=== PATIENT | female | born 1980 | race Caucasian/White ===

== ENCOUNTER → 2021-06-18 | Outpatient (CLI) | payer BC ==
[2021-06-18 16:06] VITALS: BP 152/88; PULSE 84; RESP 18; TEMP 98.5
--- NOTE | 2021-06-18 16:21 | P.GSHP ---
History of Present Illness H&P Date: 06/18/21 Bernice is a 41 year old white female seen in consultation for Dr. Salgado regarding a tripple - right breast invasive ductal cancer. The patient felt a lump in her right breast near the beginning of April the lesion did not go away but it was not painful. She reported this her primary care doctor in the ultrasound was performed on which revealed an 18 mm irregular horizontal vascular lesion in the right breast at the 9 o'clock position. She subsequently had a bilateral mammogram performed and which again confirmed the lesion in the right breast no lesions of concern were identified in the left breast. 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 The patient states it has possible gotten a little larger in size. Does not feel any other lumps masses or nodules in either breast. She does not feel any enlarged lymph nodes under either arm. She has never had any surgery on her breasts before. She has not had any recent trauma or infection in the breast. Caffeine: 1 can/day nicotine: none chocolate:occasional Family History: maternal grandfather: leukemia/ lymphoma paternal grandmother: bone cancer Hormonal History: menarche: 13 , breast fed: no, age at first : 22 periods regular LMP: Feb: 18 BCP: used at 20 for 1 year hormones: none Surgical history: 2 C-sections back surgery twice/discectomy and [id number]; L5S1 2010, 2015 gallbladder Medical History: HTN Social History: nicotine: 1/2 PPD for 5 years stopped in 2009 alcohol: occasional drugs: none - Constitutional Constitutional: Denies chills, Denies fever - EENT Eyes: denies blurred vision, denies pain Ears: deny: decreased hearing, tinnitus Ears, nose, mouth and throat: Denies headache, Denies sore throat - Breasts Breasts: bilateral: as per HPI - Cardiovascular Cardiovascular: Denies chest pain, Denies shortness of breath - Respiratory Respiratory: Denies cough, Denies 7 - Gastrointestinal Gastrointestinal: Denies abdominal pain, Denies diarrhea, Denies nausea, Denies vomiting - Genitourinary (Female) Genitourinary: Denies dysuria, Denies hematuria - Menstruation Menstruation: Reports period normal - Musculoskeletal Musculoskeletal: Reports as per HPI - Integumentary Integumentary: Denies pruritus, Denies rash - Neurological Comment: both legs numbness after back surgery/ right arm numbness and tingling - Psychiatric Psychiatric: Denies anxiety, Denies depression - Endocrine Endocrine: Denies fatigue, Denies weight change - Hematologic/Lymphatic Comment: none - Allergic/Immunologic Allergic/Immunologic: Reports seasonal allergies Past Medical History Past Medical History: No Reported History History of Any Multi-Drug Resistant Organisms: None Reported Past Surgical History: Back Surgery, Section, Cholecystectomy Past Psychological History: No Psychological Hx Reported Past Alcohol Use History: None Reported Past Drug Use History: None Reported Medications and Allergies Home Medications Medication Instructions Recorded Confirmed Type Hydrocodone/Acetaminophen [[place] 2 tab PO Q4HR PRN 06/26/15 06/26/15 History 5-325] Orphenadrine [Norflex] 100 mg PO Q12H #10 tablet.er 06/26/15 Rx methylPREDNISolone [Medrol Dose 4 mg PO DIRECTED 06/26/15 06/26/15 History Pack] Allergies Allergy/AdvReac Type Severity Reaction Status Date / Time ciprofloxacin [From Cipro] Allergy Unknown Verified 06/26/15 18:16 ciprofloxacin HCl Allergy Unknown Verified 06/26/15 18:16 [From Cipro] Surgical - Exam BMI 29.3 - General no distress - Eyes normal ocular movement - ENT no hearing loss - Neck trachea midline - Respiratory normal respiratory effort - Cardiovascular Rhythm: regular Heart Sounds: normal: S1, S2 - Abdomen Abdomen: soft - Integumentary normal turgor - Neurologic no disoriented, no combative - Musculoskeletal normal gait, normal posture - Psychiatric oriented to time, oriented to person, oriented to place, speech is normal, memory intact Breast Exam: BRA: 36B inspection: Mild ecchymosis right breast at biopsy site bilateral grade 2 ptosis Palpation: Right breast multiple positional exam fibrocystic changes, dense breasts, fullness upper-outer quadrant approximately 3 cm in size Right axilla: No adenopathy of concern Left breast: Multiple positional exam dense breast fibrocystic changes no dominant masses or nodules of concern Left axilla: No adenopathy of concern Results In agreement ultrasound results reviewed Assessment and Plan Assessment: Impression: Invasive ductal carcinoma right breast Hypertension Prior back surgery Plan: Presentation of case at tumor board Medical oncology consult CC: Dr. Salgado
== END ==
LOC: WWCWWP 15:50
PROVIDERS: ATTEND Surgery
DX: C50.911 Malignant neoplasm of unspecified site of right female breast (principal); I10 Essential (primary) hypertension; Z87.891 Personal history of nicotine dependence; Z98.890 Other specified postprocedural states; Z88.1 Allergy status to other antibiotic agents

== ENCOUNTER → 2021-07-01 | Outpatient (CLI) | payer BC | END | disposition home or self-care (01) | LOC: RADMAMWWP 10:15 | PROVIDERS: ATTEND Surgery | DX: Z53.9 Procedure and treatment not carried out, unspecified reason (principal) ==

== ENCOUNTER → 2021-07-04 | Outpatient (CLI) | payer BC ==
--- NOTE | 2021-07-04 12:37 | CT ---
EXAMINATION TYPE: CT ChestAbdPelvis w con DATE OF EXAM: 07/04/2021 COMPARISON: None. HISTORY: Newly diagnosed right-sided breast cancer. CT DLP: 2123 mGycm. Automated Exposure Control for Dose Reduction was Utilized. CONTRAST: CT scan of the thorax, abdomen and pelvis is performed with oral and with IV Contrast, patient inject ed with 100 mL of Isovue M300. FINDINGS: LUNGS: The lungs are grossly clear, there is no concerning parenchymal mass or nodule identified. T here is no pleural effusion or pneumothorax seen. The tracheobronchial tree is patent. MEDIASTINUM: There are no greater than 1 cm hilar or mediastinal lymph nodes. No cardiomegaly or pe ricardial effusion is seen. OTHER: Roughly 1.6 cm right breast mass with clip axial image 26 corresponding to recent biopsy prove n cancer. No suspicious axillary adenopathy bilaterally. LIVER/GB: Cholecystectomy clips are present. PANCREAS: No significant abnormality is seen. SPLEEN: No significant abnormality is seen. ADRENALS: No significant abnormality is seen. KIDNEYS: Approximately 4 mm calculus in the left kidney axial image 65 upper to mid pole level. Symme tric cortical medullary uptake and excretion without hydronephrosis seen bilaterally. BOWEL: Oral contrast reaches level of the right colon. There is contrast-filled normal-appearing appe ndix. There is no suspicious small or large bowel dilatation. GENITAL ORGANS: Anteverted uterus. Ovaries symmetric and within normal limits in size. LYMPH NODES: No greater than 1cm abdominal or pelvic lymph nodes are appreciated. OSSEOUS STRUCTURES: Moderate to severe disc space narrowing L4-L5 level. Moderate disc space narrowin g L5-S1 level. OTHER: No significant additional abnormality is seen. IMPRESSION: Redemonstration of known right breast mass or neoplasm measures 1.[address] No suspici ous adenopathy or CT evidence for metastatic disease.
--- NOTE | 2021-07-04 14:51 | NM ---
EXAMINATION TYPE: NM bone scan whole body DATE OF EXAM: 07/04/2021 COMPARISON: CT scan 07/04/2021 HISTORY: Breast cancer Delayed whole-body scanning was performed following the injection of 21.9 mCi Tc 99m MDP. Images acq uired 3 hours post injection. FINDINGS: There is a focal intense area of abnormal uptake involving the right superior orbital rim. Abnormal uptake involving the shoulders, knees and feet likely post arthritic. Faint uptake in the lower thoracic and lower lumbar spines typical degenerative change. IMPRESSION: 1. There is a focal intense area of abnormal uptake involving the right superior orbital rim. This co uld be correlated with x-ray. Otherwise, no diagnostic evidence of metastasis. Abnormal uptake involv ing the vertebral column is concordant with CT findings suggestive of degenerative disc disease.
--- NOTE | 2021-07-07 10:07 | BMR ---
EXAMINATION TYPE: MR breast BILAT wo/w con DATE OF EXAM: 07/04/2021 COMPARISON: CT chest abdomen and pelvis July 04, 2021. HISTORY: Breast cancer, biopsy right breast June 09, 2021. TECHNIQUE: A series of fat and water weighted images in the long and short axis views of both breasts are obtained in conjunction with dynamic contrast MRI with subtraction technique. The patient was i njected with 9 mL intravenous Gadavist gadolinium contrast. Three-dimensional and additional postpr ocessing imaging is created on independent workstation and reviewed during official interpretation of this study. FINDINGS: Heterogeneously dense fibroglandular tissue bilaterally is redemonstrated. No abnormal nabila opathy clearly identified. T2 and STIR weighted images show no significant cystic change or worrisome focal fluid collections. Dynamic postcontrast imaging shows mild background glanular enhancement. De layed dynamic imaging shows no suspicious internal mammary adenopathy. With regards to the left breast, there is no pathologic enhancement or enhancing masses. No suspiciou s skin thickening is seen. The chest wall is intact. With regards to the right breast there is heterogeneous enhancing mass in the posterior depth measuri ng 1.8 x 1.7 cm postcontrast image 662 series 701 but this mass measures 2.5 cm craniocaudal dimensio n sagittal image 42 x 2.7 cm AP diameter on same sagittal image. This is just above the nipple roughl y 10:00 position. This correlates with ultrasound consistent with known malignancy. No additional are as of suspicious enhancement or enhancing mass. No abnormal skin thickening. The chest wall is intact with approximately 1.0 cm separation seen posteriorly. No suspicious incidental findings. IMPRESSION: Confirmation of known neoplasm right breast. No multicentric disease. No evidence for inv asive malignancy in the left breast.
== END | disposition home or self-care (01) ==
LOC: RADCTMAIN 09:50
PROVIDERS: ATTEND Internal Medicine Hematology & Oncology
DX: C50.211 Malignant neoplasm of upper-inner quadrant of right female breast (principal); R93.7 Abnormal findings on diagnostic imaging of other parts of musculoskeletal system
CPT/HCPCS: 71260; 74177; 77049; 78306; C8937; A9503; A9585; Q9967 ×2

== ENCOUNTER → 2021-07-04 | Outpatient (CLI) | payer BC | END | disposition home or self-care (01) | LOC: RADMRIMAIN 09:45 | PROVIDERS: ATTEND Surgery | DX: Z53.9 Procedure and treatment not carried out, unspecified reason (principal) ==

== ENCOUNTER → 2021-07-07 | Outpatient (CLI) | payer BC ==
--- NOTE | 2021-07-08 12:00 | ECHOF ---
Referral Reason:[id number] MEASUREMENTS -------- HEIGHT: 170.2 cm WEIGHT: 86.2 kg BP: 136/82 RVIDd: 2.7 cm (< 3.3) IVSd: 1.1 cm (0.6 - 1.1) LVIDd: 4.6 cm (3.9 - 5.3) LVPWd: 1.0 cm (0.6 - 1.1) IVSs: 1.7 cm LVIDs: 2.2 cm LVPWs: 1.3 cm LA Diam: 3.7 cm (2.7 - 3.8) LAESV Index (A-L): 21.05 ml/m Ao Diam: 2.8 cm (2.0 - 3.7) AV Cusp: 2.1 cm (1.5 - 2.6) MV EXCURSION: 13.666 mm (> 18.000) MV EF SLOPE: 76 mm/s (70 - 150) EPSS: 0.7 cm MV E Ronaldo: 1.07 m/s MV DecT: 202 ms MV A Ronaldo: 0.97 m/s MV E/A Ratio: 1.11 FINDINGS -------- Sinus rhythm. This was a technically adequate study. The left ventricular size is normal. Left ventricular wall thickness is normal. Overall left vent ricular systolic function is normal with, an EF between 60 - 65 %. The right ventricle is normal in size. Normal LA size by volume 22+/-6 ml/m2. The right atrium is normal in size. Interatrial and interventricular septum intact. The aortic valve is trileaflet and appears structurally normal. The mitral valve is normal. Plcc-gq-qgvzkuad mitral regurgitation is present. The tricuspid valve appears structurally normal. Unable to estimate RVSP due to inadequate TR jet s pectral doppler profile. The pulmonic valve is normal. The aortic root size is normal. Normal inferior vena cava with normal inspiratory collapse consistent with estimated right atrial pre ssure of 5 mmHg. There is no pericardial effusion. CONCLUSIONS -------- 1. The left ventricular size is normal. 2. Left ventricular wall thickness is normal. 3. Overall left ventricular systolic function is normal with, an EF between 60 - 65 %. 4. Gfrh-pr-uldquqlw mitral regurgitation is present. 5. There is no pericardial effusion. BARRELHEAD INSPECTOR: Simran Howell RDCS
== END | disposition home or self-care (01) ==
LOC: RADECHMAIN 14:02
PROVIDERS: ATTEND Internal Medicine Hematology & Oncology
DX: Z01.818 Encounter for other preprocedural examination (principal); I34.0 Nonrheumatic mitral (valve) insufficiency
CPT/HCPCS: 93306

== ENCOUNTER 2021-07-11 09:17 | Day surgery (SDC) | payer BC ==
[2021-07-09 11:07] VITALS: BMI 29.7
[~2021-07-11 09:17] MED LIST: DEXAMETHASONE SOD PHOSPHATE 4 MG/ML 1 ML VIAL IV ONE; HYDROmorphone 0.5 MG/0.5 ML SYRINGE IVP PRN; LACTATED RINGERS 1,000 ML IV SCH; LIDOCAINE 1% (10MG/ML) FOR IV START INTRADERMA PRN; MIDAZOLAM 2 MG/2 ML VIAL IV PRN; ONDANSETRON 4 MG/2 ML VIAL IVP ONE; Pre Op ABX Message 1 EACH MISC MISCELLANE ONE
[2021-07-11 09:38] VITALS: RESP 16
[2021-07-11] MEDS ORDERED: SCOPOLAMINE 1 MG/72 HR PATCH TRANSDERM ONE (09:48)
[2021-07-11] MEDS ORDERED: ACETAMINOPHEN TAB 500 MG TAB PO STA (10:04)
--- NOTE | 2021-07-11 10:07 | P.GSHP ---
History of Present Illness H&P Date: 07/11/21 CHIEF COMPLAINT: Breast cancer HISTORY OF PRESENT ILLNESS: The patient is a 41-year-old female diagnosed with breast cancer. She needs a Mediport placement for chemotherapy. PAST MEDICAL HISTORY: See list and reviewed PAST SURGICAL HISTORY: See list and reviewed CURRENT MEDICATIONS: See list and reviewed ALLERGIES: See list and reviewed SOCIAL HISTORY: See list and reviewed FAMILY HISTORY: See list and reviewed REVIEW OF ORGAN SYSTEMS: CONSTITUTIONAL: No fevers or chills RESPIRATORY: No pneumonia. No dyspnea on exertion. CARDIOVASCULAR: No recent chest pain. No history of blood clots PHYSICAL EXAMINATION: Vital signs: Stable GENERAL: Well developed and in no acute distress. Pleasant. HEENT: No sclera icterus. Extraocular movements grossly intact. Moist buccal mucosa. Head is atraumatic, normocephalic. Hears conversational speech. No nasal drainage. NECK: Supple without lymphadenopathy. No JV distention. CHEST: Non-labored respirations and equal bilateral excursions. CARDIOVASCULAR: Regular rate and rhythm. Palpable 2+ radial pulses. ABDOMEN: Nontender. MUSCULOSKELETAL: No clubbing, cyanosis or edema. NEUROLOGIC: No focal or lateralizing signs. PSYCH: Appropriate affect. Alert and oriented to person, place and time. ASSESSMENT: 1. Breast cancer 2. Need for chemotherapeutic access. PLAN: 1. Port-A-Cath placement for chemotherapy access Past Medical History Past Medical History: Cancer, Hypertension Additional Past Medical History / Comment(s): HEART MURMUR., CHRONIC BACK PAIN, HX PANCREATITIS, RIGHT BREAST CANCER, DR MONITORING THYROID. History of Any Multi-Drug Resistant Organisms: None Reported Past Surgical History: Back Surgery, Section, Cholecystectomy Additional Past Surgical History / Comment(s): BACK SURGERY X2, BREAST BX. ([facility]) Past Anesthesia/Blood Transfusion Reactions: Motion Sickness Additional Past Anesthesia/Blood Transfusion Reaction / Comment(s): VOMITING WHILE UNDER ANESTHESIA. Past Psychological History: No Psychological Hx Reported Smoking Status: Former smoker Past Alcohol Use History: Occasional Additional Past Alcohol Use History / Comment(s): QUIT SMOKING 2009, HX OF 5 CIGARETTES / DAY., SMOKED 5 YEARS. Past Drug Use History: None Reported - Past Family History Mother Family Medical History: No Reported History Medications and Allergies Home Medications Medication Instructions Recorded Confirmed Type Atenolol [Tenormin] 50 mg PO BID 07/09/21 07/11/21 History Cholecalciferol [Vitamin D3 (125 10,000 units PO Q48H 07/09/21 07/11/21 History Mcg = 5000 Iu)] Fluticasone Nasal [place] [Flonase 1 spray EA NOSTRIL DIRECTED 07/09/21 07/11/21 History Nasal [place]] Ibuprofen 600 - 800 mg PO DAILY PRN 07/09/21 07/09/21 History Multivit with Calcium,Iron,Min 1 each PO DAILY 07/09/21 07/09/21 History [Women's Multivitamin] lisinopriL [Zestril] 20 mg PO HS 07/09/21 07/11/21 History Allergies Allergy/AdvReac Type Severity Reaction Status Date / Time meropenem [From Merrem] Allergy Unknown Rash/Hives Verified 07/11/21 09:44 ciprofloxacin [From Cipro] Allergy Unknown Verified 07/11/21 09:44 ciprofloxacin HCl Allergy Rash/Hives Verified 07/11/21 09:44 [From Cipro] Surgical - Exam Vital Signs Temp Pulse Resp BP Pulse Ox 98.5 F 87 16 125/77 96 07/11/21 09:34 07/11/21 09:34 07/11/21 09:34 07/11/21 09:34 07/11/21 09:34
[2021-07-11] MEDS ORDERED: FAMOTIDINE 20 MG/2 ML VIAL IV ONE (10:32)
[2021-07-11] MEDS ORDERED: ONDANSETRON 4 MG/2 ML VIAL ONE (10:40)
[2021-07-11] MEDS ORDERED: MIDAZOLAM 2 MG/2 ML VIAL ONE (10:40)
[2021-07-11] MEDS ORDERED: fentaNYL (PF) 50 MCG/ML 2 ML AMP ONE (10:40)
[2021-07-11] MEDS ORDERED: PHENYLEPHRINE-0.9% NACL SYG 1,000 MCG/10 ML SYRINGE ONE (10:40)
[2021-07-11] MEDS ORDERED: SUCCINYLCHOLINE CHLORIDE 100 MG/5 ML SYR IV ONE (10:40)
[2021-07-11] MEDS ORDERED: PROPOFOL 10 MG/ML 20 ML VIAL IV ONE (10:40)
[2021-07-11] MEDS ORDERED: SODIUM CHLORIDE 0.9% 500 ML 500 ML with HEPARIN SODIUM,PORCINE 5,000 UNIT IV ONE ×2 (11:12)
[2021-07-11] MEDS ORDERED: BUPIVACAIN-EPI 0.25%-1:200,000 30 ML VIAL SQ ONE (11:24)
[2021-07-11] MEDS ORDERED: LACTATED RINGERS 1,000 ML IV ONE (11:38)
--- NOTE | 2021-07-11 12:05 | P.OP ---
Date of Procedure: 07/11/21 Description of Procedure: SURGEON: SUGAR COLON MD WHEEL BLOCKER: None. PREOPERATIVE DIAGNOSES: 1. Breast cancer, right 2. Need for chemotherapeutic access. 3. Hypertensive heart disease 4. Postop nausea vomiting 5. Chronic back pain 6. Motion sickness POSTOPERATIVE DIAGNOSES: 1. Breast cancer, right 2. Need for chemotherapeutic access. 3. Hypertensive heart disease 4. Postop nausea vomiting 5. Chronic back pain 6. Motion sickness 7. Goiter PROCEDURES PERFORMED: 1. Ultrasound guided central venous access of the right internal jugular venous vein. 2. Fluoroscopic guidance for central venous access right internal jugular vein 1 second 3. Placement of right internal jugular power port 6 [place] by [employer], [employer] Plus Port ANESTHESIA: GETA with local. ESTIMATED BLOOD LOSS: 1 mL. SPECIMENS REMOVED: None. COMPLICATIONS: None. FINDINGS: 1. No thrombus encountered along the right carotid artery or internal jugular vein. 2. Access of the right internal jugular vein under ultrasound guidance. 3. Fluoroscopy of 1 second INDICATIONS: The patient is a 41-year-old female recently diagnosed with breast cancer. She presents for chemotherapeutic access. Benefits and risks of surgical intervention were described including bleeding, infection, mechanical problems with his port. Informed consent was obtained. DESCRIPTION OR PROCEDURE: Patient was brought into the operating room, laid in supine position. After adequate IV sedation, the chest and right neck were prepped and draped in a standard sterile fashion including the shoulder with ChloraPrep. Timeout protocol was confirmed with the surgical team regarding the patient's name, procedure to be performed including preoperative medications for which she received IV antibiotics. Bilateral SCDs were placed. An ultrasound was used to capture views of the right internal jugular vein including right carotid artery, which was patent and without thrombus along its course. The right IJ was then localized using anesthetic for the skin. A 16 [place] needle was used to access the IJ. A guidewire was advanced into the IJ with dark nonpulsatile venous blood. Two fingerbreadths distal to the clavicle, on the lateral third, a transverse 1.5 to 2 cm incision was deepened into the skin after localizing the skin. A pocket was created for the port. The port on the back table was flushed with heparinized saline and then attached to the catheter tubing. An adapter was fastened to the actual port site over the tubing. The port easily had fit snug into the pocket. A subcutaneous tunneler was placed along the open end of the tubing and brought out through the separate stab incision. Fluoroscopic guidance confirmed no kinking along the tubing and the port site. Next, the J-wire was exchanged for a catheter sheath for which the tubing was cut to 23 cm and then advanced through the catheter sheath. The Peel-away sheath was then removed and the tubing was secured at the junction of the superior vena cava as well as the right atrium. The tubing was found to be crossed however functional. This was all done under fluoroscopic guidance 1 seconds. Easy pullback as well as return and aspiration was obtained of the port site. The skin incision was closed using layers using 3-0 Vicryl for the subcu followed by 4-0 Monocryl in a running subcuticular fashion. At the stick site this was also reapproximated using 4-0 Monocryl. The incisions were covered with Optifoam, The skin was cleansed and Exofin liquid glue was applied. Optifoam dressing was placed over the port site. At the end of the procedure, needle, sponge, and instrument count was verified correct by surgical product sales consultant. Heparin lock of 5 mL was placed. The patient was awoken and pain free and taken to the second stage postanesthesia care unit. The patient tolerated the procedure well. Plan - Discharge Summary Discharge Rx Participant: Yes New Discharge Prescriptions: New Acetaminophen Tab [Tylenol Tab] 1,000 mg PO Q6HR PRN #30 tablet PRN Reason: Pain Continue Fluticasone Nasal [place] [Flonase Nasal [place]] 1 spray EA NOSTRIL DIRECTED lisinopriL [Zestril] 20 mg PO HS Cholecalciferol [Vitamin D3 (125 Mcg = 5000 Iu)] 10,000 units PO Q48H Ibuprofen 600 - 800 mg PO DAILY PRN PRN Reason: Pain Atenolol [Tenormin] 50 mg PO BID Multivit with Calcium,Iron,Min [Women's Multivitamin] 1 each PO DAILY Discharge Medication List Atenolol [Tenormin] 50 mg PO BID 07/09/21 [History] Cholecalciferol [Vitamin D3 (125 Mcg = 5000 Iu)] 10,000 units PO Q48H 07/09/21 [History] Fluticasone Nasal [place] [Flonase Nasal [place]] 1 spray EA NOSTRIL DIRECTED 07/09/21 [History] Ibuprofen 600 - 800 mg PO DAILY PRN 07/09/21 [History] Multivit with Calcium,Iron,Min [Women's Multivitamin] 1 each PO DAILY 07/09/21 [History] lisinopriL [Zestril] 20 mg PO HS 07/09/21 [History] Acetaminophen Tab [Tylenol Tab] 1,000 mg PO Q6HR PRN #30 tablet 07/11/21 [Rx] Follow up Appointment(s)/Referral(s): Sugar Colon MD [STAFF PHYSICIAN] - As Needed Patient Instructions/Handouts: *Surgery [facility] - Scopalamine Patch Instructions, Implanted Venous Access Port (GEN) Activity/Diet/Wound Care/Special Instructions: Remove dressing on July 15. August shower. No bathtub soaks for 2 weeks, Nov 24 No wide motions of the right arm to prevent dislodge of your port for 3 weeks. EXPECT BRUISING AND SLEEP WITH 2 TO 3 PILLOWS. BRUISING RESOLVES IN 2 TO 3 WEEKS. Take Tylenol, Aleve or ibuprofen for pain as needed Discharge Disposition: HOME SELF-CARE
[2021-07-11 12:11] VITALS: TEMP 97
--- NOTE | 2021-07-11 12:40 | XR ---
EXAMINATION TYPE: XR chest 1V portable DATE OF EXAM: 07/11/2021 COMPARISON: CT chest 07/04/2021 HISTORY: Port-A-Cath placement TECHNIQUE: Single frontal view of the chest is obtained. FINDINGS: There is a port in the right pectoral region, catheter tip is within the right atrium via a jugular approach. No evident pneumothorax or pleural effusion. Some minimal patchy densities presen t at the left lung base. Cardiac mediastinal silhouette within normal limits. IMPRESSION: No evident comp occasions status post Port-A-Cath placement.
--- NOTE | 2021-07-11 13:03 | FL ---
Fluoroscopy HISTORY: Mediport placement 1 seconds fluoroscopy time supplied to the referring clinician. 2 intraoperative C-arm images docume nt the procedure. See dictated report from general surgery.
[2021-07-11 13:49] VITALS: BP 123/81; PULSE 85
== END 2021-07-11 14:06 | disposition home or self-care (01) ==
LOC: OR 09:17
PROVIDERS: ATTEND Surgery Plastic and Reconstructive Surgery
DX: C50.911 Malignant neoplasm of unspecified site of right female breast (principal); Z87.891 Personal history of nicotine dependence; I11.9 Hypertensive heart disease without heart failure; M54.9 Dorsalgia, unspecified; G89.29 Other chronic pain; R01.1 Cardiac murmur, unspecified; Z90.49 Acquired absence of other specified parts of digestive tract; Z87.19 Personal history of other diseases of the digestive system; Z88.8 Allergy status to other drugs, medicaments and biological substances; Z88.1 Allergy status to other antibiotic agents; T75.3XXA Motion sickness, initial encounter; E04.9 Nontoxic goiter, unspecified
CPT/HCPCS: 36561; 76937; 81025; 77001; 71045; C1788; J2250; J1644; J1100; J0690; J2405; J3010; J1642; J2370; J0330; J2704; J1790

== ENCOUNTER → 2021-08-08 | Outpatient (CLI) | payer BC ==
[2021-08-08 11:09] VITALS: BP 119/84; PULSE 101; RESP 12; TEMP 97.9
--- NOTE | 2021-08-08 11:54 | P.PN ---
Subjective Progress Note Date: 08/08/21 Principal diagnosis: [id number] stage IIB invasive ductal carcinoma of the right breast Patient is a 41-year-old white female diagnosed with a stage IIB invasive ductal carcinoma of the right breast. This is a T2 N0 M0 G3 triple negative lesion. The patient had a bone scan done which did reveal an area of increased activity in the right superior orbital rim. This was reviewed with Dr. martinez. She also had a CT chest abdomen and pelvis which was negative for any metastatic disease and MA of bilateral breast which did not show multicentric disease or disease in the left breast. The patient had a Port-A-Cath placed several weeks ago and has now started her chemotherapy. She is recommended to undergo 16 weeks of chemotherapy as well as immunotherapy by Dr. Velasquez. She has had two cycles of chemotherapy. She is due to go again next week Genetic testing was done which was negative. Objective - Vital Signs Vital signs: Vital Signs Temp 97.9 F 08/08/21 11:05 Pulse 101 H 08/08/21 11:05 Resp 12 08/08/21 11:05 BP 119/84 08/08/21 11:05 Pulse Ox 98 08/08/21 11:05 Intake & Output 08/07/21 08/08/21 08/08/21 18:59 06:59 18:59 Weight 85.275 kg - Exam BMI: 29.4 - Constitutional General appearance: Present: cooperative - EENT Eyes: Present: EOMI ENT: Present: hearing grossly normal - Neck Neck: Present: normal ROM - Respiratory Respiratory: bilateral: CTA - Cardiovascular Heart sounds: normal: S1, S2 - Integumentary Integumentary: Present: normal turgor - Musculoskeletal Musculoskeletal: Present: gait normal - Psychiatric Psychiatric: Present: A&O x's 3, appropriate affect - Additional findings Additional findings: Breast examination: Examination is limited to the right breast, the area of tumor in the upper quadrant appears to be softer in approximately one and a half to 2 cm in size Assessment and Plan Assessment: Impression: Metastatic workup with bone scan showing an area of increased uptake in the right superior orbital rim for which CT of the brain is recommended as per Dr. Wesley Probable decrease in size of the tumor in the right breast upper outer quadrant Plan: CT of the brain Continue chemotherapy Follow up after CT of the brain for results Follow-up to evaluate decrease in tumor size in 2 months CC: Dr. Faheem Mejía, Dr. Velasquez
--- NOTE | 2021-08-08 13:27 | CT ---
EXAMINATION TYPE: CT brain wo con DATE OF EXAM: 08/08/2021 COMPARISON: Whole-body bone scan 29/08/2021 HISTORY: Abn bone scan, breast CA CT DLP: 892.1 mGycm. Automated Exposure Control for Dose Reduction was Utilized. TECHNIQUE: CT scan of the head is performed without contrast. FINDINGS: There is no acute intracranial hemorrhage, mass effect, or midline shift identified. The ventricles and sulci are within normal limits in size. Holley-white matter differentiation is maintain ed. The visualized portion of globes are intact and the visualized sinuses are clear. Corresponding t o the area of concern on bone scan right supraorbital level there is focal asymmetric hyperostosis no ector near axial image 22 which is believed to be accounting for bone scan findings. No CT evidence for suspicious osseous lesion to suggest metastatic disease. IMPRESSION: As above.
== END ==
LOC: WWCWWP 10:58
PROVIDERS: ATTEND Surgery
DX: C50.911 Malignant neoplasm of unspecified site of right female breast (principal); R94.8 Abnormal results of function studies of other organs and systems; Z17.1 Estrogen receptor negative status [ER-]; Z88.1 Allergy status to other antibiotic agents
CPT/HCPCS: 70450

== ENCOUNTER 2021-09-26 10:28 | Day surgery (SDC) | payer BC ==
[2021-09-26 10:48] VITALS: BP 135/83; PULSE 83; RESP 16; TEMP 97.8
[2021-09-26] MEDS ORDERED: IOPAMIDOL-370 50ML BTL MISCELLANE ONE (11:39)
--- NOTE | 2021-09-26 12:12 | IR ---
Port-A-Cath check HISTORY: Burning on intravenous administration of fluids for port malfunction 0.5 minutes fluoroscopy time, 152 intraoperative C-arm images Patient's port was evaluated under real-time fluoroscopy Gentle hand-injection of contrast material was performed. The port fills with contrast. There is no e vident extravasation. Catheter is intact. Catheter tip is at the right atrium. Catheter aspirates and flushes without incident. On the procedure catheter was flushed with heparin flush. There is no imme diate competition. Patient discharged in stable condition. IMPRESSION: Normal Port-A-Cath check
== END 2021-09-26 12:00 | disposition home or self-care (01) ==
LOC: CATHCVL 10:28
PROVIDERS: ATTEND Radiology Diagnostic Radiology
DX: T85.618A Breakdown (mechanical) of other specified internal prosthetic devices, implants and grafts, initial encounter (principal); C50.411 Malignant neoplasm of upper-outer quadrant of right female breast; E78.5 Hyperlipidemia, unspecified; I10 Essential (primary) hypertension; Z98.891 History of uterine scar from previous surgery; Z90.49 Acquired absence of other specified parts of digestive tract; Z98.890 Other specified postprocedural states; B37.3 Candidiasis of vulva and vagina; K12.31 Oral mucositis (ulcerative) due to antineoplastic therapy; Z80.6 Family history of leukemia; Z83.2 Family history of diseases of the blood and blood-forming organs and certain disorders involving the immune mechanism; Z80.8 Family history of malignant neoplasm of other organs or systems; Z86.19 Personal history of other infectious and parasitic diseases; Z87.891 Personal history of nicotine dependence; Z79.899 Other long term (current) drug therapy; Z88.1 Allergy status to other antibiotic agents
CPT/HCPCS: 36598; 81025; J1642; Q9967

== ENCOUNTER 2021-11-09 19:57 | Emergency (ER) | payer BC ==
[2021-11-09 20:12] VITALS: RESP 18
[2021-11-09] MEDS ORDERED: SULFAMETHOX-TMP 800-160MG 1 EACH TAB PO STA (20:53)
[2021-11-09] MEDS ORDERED: MUPIROCIN 2% OINT 22 GM TUBE TOPICAL STA (20:53)
--- NOTE | 2021-11-09 20:58 | ED ---
Skin/Abscess/FB HPI - General Chief complaint: Skin/Abscess/Foreign Body Stated complaint: Infection Time Seen by Provider: 11/09/21 20:14 Source: patient, RN notes reviewed, old records reviewed Mode of arrival: ambulatory Limitations: no limitations - History of Present Illness Initial comments: This is a 41-year-old female to the emergency department for evaluation patient Dese for evaluation of abdominal wall pain. Area of redness and tenderness to the right side of her abdomen. States did have an area entered by today. Patient is without fevers. No other complaints patient currently on chemotherapy for breast cancer MD complaint: rash, abscess/boil -: week(s) Tetanus Up to Date: yes Location: chest (Abdominal wall) Severity: moderate Severity scale (1-10): 7 Quality: sharp Consistency: constant Improves with: none Worsens with: none Context: none Associated symptoms: denies other symptoms Treatments Prior to Arrival: none - Related Data Home Medications Medication Instructions Recorded Confirmed Cholecalciferol [Vitamin D3 (125 3,000 units PO DAILY 07/09/21 09/26/21 Mcg = 5000 Iu)] Ibuprofen 600 - 800 mg PO DAILY PRN 07/09/21 09/26/21 atenoloL [Tenormin] 50 mg PO BID 07/09/21 09/26/21 lisinopriL [Zestril] 20 mg PO HS 07/09/21 09/25/21 OLANZapine [ZyPREXA] 5 mg PO HS PRN 09/25/21 09/25/21 Previous Rx's Medication Instructions Recorded Sulfamethox-Tmp 800-160Mg [Bactrim 2 tab PO BID #28 tab 11/09/21 DS 800-160 mg] Allergies Allergy/AdvReac Type Severity Reaction Status Date / Time meropenem [From Merrem] Allergy Unknown Rash/Hives Verified 11/09/21 20:12 ciprofloxacin [From Cipro] Allergy Unknown Verified 11/09/21 20:12 ciprofloxacin HCl Allergy Rash/Hives Verified 11/09/21 20:12 [From Cipro] Review of Systems ROS Statement: Those systems with pertinent positive or pertinent negative responses have been documented in the HPI. ROS Other: All systems not noted in ROS Statement are negative. Past Medical History Past Medical History: Cancer, Hypertension, Osteoarthritis (OA) Additional Past Medical History / Comment(s): HEART MURMUR., CHRONIC BACK PAIN, HX PANCREATITIS, RIGHT BREAST CANCER-dx in June-current chemo, DR MONITORING THYROID. History of Any Multi-Drug Resistant Organisms: None Reported Past Surgical History: Back Surgery, Breast Surgery, Section, Cholecystectomy Additional Past Surgical History / Comment(s): BACK SURGERY X2, BREAST BX. ([facility]), C/S x2, colonoscopy, mediport insertion Past Anesthesia/Blood Transfusion Reactions: Motion Sickness, Postoperative Nausea & Vomiting (PONV) Additional Past Anesthesia/Blood Transfusion Reaction / Comment(s): vomited during back surg. while under sedation, wondering if maybe related to versed because the N/V starts before being put out Past Psychological History: No Psychological Hx Reported Smoking Status: Former smoker Past Alcohol Use History: Rare Past Drug Use History: None Reported - Past Family History Mother Family Medical History: No Reported History General Exam Limitations: no limitations General appearance: alert, in no apparent distress Head exam: Present: atraumatic, normocephalic, normal inspection Eye exam: Present: normal appearance, PERRL, EOMI. Absent: scleral icterus, conjunctival injection, periorbital swelling ENT exam: Present: normal exam, mucous membranes moist Neck exam: Present: normal inspection. Absent: tenderness, meningismus, lymphadenopathy Respiratory exam: Present: normal lung sounds bilaterally. Absent: respiratory distress, wheezes, rales, rhonchi, stridor Cardiovascular Exam: Present: regular rate, normal rhythm, normal heart sounds. Absent: systolic murmur, diastolic murmur, rubs, gallop, clicks GI/Abdominal exam: Present: soft, normal bowel sounds, other (Right-sided abdominal wall abscess). Absent: distended, tenderness, guarding, rebound, rigid Extremities exam: Present: normal inspection, full ROM, normal capillary refill. Absent: tenderness, pedal edema, joint swelling, calf tenderness Back exam: Present: normal inspection Neurological exam: Present: alert, oriented X3, CN II-XII intact Psychiatric exam: Present: normal affect, normal mood Skin exam: Present: warm, dry, intact, normal color. Absent: rash Course Vital Signs 11/09/21 20:08 Temperature 99 F Pulse Rate 135 H Respiratory 18 Rate Blood Pressure 163/119 O2 Sat by Pulse 100 Oximetry - Reevaluation(s) Reevaluation #1: 11/09/21 20:56 Medical records reviewed Reevaluation #2: 11/09/21 20:56 Abscess incised and drained without difficulty here in the ER, patient can be discharged Procedures - Incision & Drainage Consent Obtained: verbal consent Indication: Abscess Site: abdomen Size (cm): 3 Anesthetic Used: lidocaine 1%, with epi I&D Cleaning Method: Betadine Sterile Field Used?: Yes Scalpel Used: #11 Needle Aspiration Performed?: No Irrigation Performed?: Yes I&D Drainage Obtained: Pus Culture Obtained?: No Patient Tolerated Procedure: well Medical Decision Making - Medical Decision Making 41 female to the emergency department for evaluation positive abdominal wall abscess. Superficial, abscesses drained. Patient placed on antibiotics and can be discharged home Disposition Clinical Impression: Abscess, abdomen Disposition: HOME SELF-CARE Condition: Good Instructions (If sedation given, give patient instructions): Abscess Incision and Drainage (ED), Abscess (ED) Prescriptions: Sulfamethox-Tmp 800-160Mg [Bactrim DS 800-160 mg] 2 tab PO BID #28 tab Is patient prescribed a controlled substance at d/c from ED?: No Referrals: Henry Mejía MD [Primary Care Provider] - 1-2 days
[2021-11-09 21:23] VITALS: BP 103/67; PULSE 105; TEMP 98
== END 2021-11-09 21:22 | disposition home or self-care (01) ==
LOC: EC 19:57
DX: L02.211 Cutaneous abscess of abdominal wall (principal); I10 Essential (primary) hypertension; M19.90 Unspecified osteoarthritis, unspecified site; Z87.891 Personal history of nicotine dependence; Z88.1 Allergy status to other antibiotic agents; Z79.899 Other long term (current) drug therapy
CPT/HCPCS: 10060; 99283

== ENCOUNTER → 2023-02-26 | Outpatient (CLI) | payer BC ==
[2023-02-26 13:26] LABS: African American GFR (CKD) >90 (>60 ml/min/1.73 sqM); Blood Urea Nitrogen 11 mg/dL (7-17); Non-African American GFR(CKD) >90 (>60 ml/min/1.73 sqM)
--- NOTE | 2023-02-26 15:04 | CT ---
EXAMINATION TYPE: CT ChestAbdPelvis w con DATE OF EXAM: 02/26/2023 COMPARISON: 06/12/22 HISTORY: 42 year-old female C50.411, Right breast cancer, r/o metastasis TECHNIQUE: Contiguous axial scanning of the chest, abdomen, and pelvis performed with IV Contrast, pa tient injected with 100 cc mL of Isovue 300. Delayed images through the kidneys were obtained. Padgett l/sagittal reconstructions performed. CT DLP: 1165.4 mGycm Automated exposure control for dose reduction was used. FINDINGS: CHEST: Bilateral breast reconstructions are redemonstrated. Heart normal size without pericardial effusion. Aorta normal caliber with conventional arch vessel branching anatomy. No thoracic lymph adenopathy by CT size criteria. Some strandy atelectasis at the right base. No consolidation or pleural effusion. There is a tiny 4 mm pulmonary nodule in the right upper lobe not well seen previously, axial image 1 8 there is a nonspecific and should be reassessed at follow-up. ABDOMEN: Liver enlarged at 20.1 cm. Diffuse low attenuation of the hepatic parenchyma. Portal venous system is patent. No biliary ductal dilatation. Cholecystectomy clips. Adrenal glands, spleen, and pancreas within normal limits. A couple small renal cortical cysts on both sides measuring up to 1 cm. Nonobstructive left renal alisha culus measuring 4 mm. Symmetric uptake and excretion of contrast from both kidneys. No dilated small bowel, free fluid, or free air. No mesenteric or retroperitoneal lymphadenopathy. Normal appendix. There is mild stool burden. Oral contrast progressed into the proximal sigmoid colon. No pericolonic inflammatory change. PELVIS: Bladder is urine distended. Uterus anteverted. Both ovaries are visualized with a 2.6 cm dominant fol licle or functional cyst in the left ovary. No abnormal fluid collection in the pelvis or pelvic lymp hadenopathy. BONES: Moderate to advanced degenerative disc disease L4-L5 and L5-S1. Facet arthropathy lower lumbar spine. No osseous destructive process. IMPRESSION: 1. STATUS POST BILATERAL BREAST RECONSTRUCTIONS. 2. THERE IS A TINY NONSPECIFIC 4 MM PULMONARY NODULE NOW SEEN IN THE RIGHT UPPER LOBE. NOT CLEARLY ID ENTIFIED PREVIOUSLY. PRECAUTIONARY THREE-MONTH FOLLOW-UP CT RECOMMENDED TO REASSESS. 3. OTHERWISE, NO EVIDENCE FOR RECURRENT/METASTATIC DISEASE. 4. INCIDENTAL: HEPATOMEGALY WITH HEPATIC STEATOSIS AND A 4 MM NONOBSTRUCTIVE LEFT RENAL STONE.
== END | disposition home or self-care (01) ==
LOC: RADCTMAIN 12:48
PROVIDERS: ATTEND Internal Medicine Hematology & Oncology
DX: C50.911 Malignant neoplasm of unspecified site of right female breast (principal); K76.0 Fatty (change of) liver, not elsewhere classified; N20.0 Calculus of kidney
CPT/HCPCS: 82565; 84520; 71260; 74177; 36415; Q9967

== ENCOUNTER → 2023-05-20 | Outpatient (CLI) | payer BC ==
--- NOTE | 2023-05-20 11:34 | CT ---
EXAMINATION TYPE: CT chest wo con CT DLP: 698 mGycm, Automated exposure control for dose reduction was used. DATE OF EXAM: 05/20/2023 11:02 AM COMPARISON: CT 02/26/2023. CLINICAL INDICATION:Female, 43 years old with history of C0.411 CARCINOMA OF UPPER OUTER QUAD RIGHT B REAST; PHH, nodule, history of breast CA TECHNIQUE: Multiple axial images were obtained through the chest. Sagittal and coronal reformats were created for review. Contrast used: mL of (None if empty) Oral contrast used: (None if empty) FINDINGS: LUNGS/ PLEURA: No focal consolidation, pneumothorax or pleural effusion. Right lower lung nodule density in the post erior costophrenic angle is new from 02/26/2023. 3 mm nodule right upper lung series 3 image 17 is unchanged. AIRWAY: Patent and unremarkable. HEART: Size within normal limits. MEDIASTINUM: No gross evidence of adenopathy. VASCULATURE: No aortic aneurysm. MUSCULOSKELETAL: No acute osseous abnormalities SOFT TISSUES/LYMPH NODES: Bilateral breast implants which appear intact. LOWER NECK: No significant findings. UPPER ABDOMEN: Gallbladder surgically absent. Nonobstructing left renal calculus measuring 5 mm. Low- attenuation to liver. IMPRESSION: 1. Right posterior costophrenic angle nodular-like opacities could represent infectious/inflammatory process. Short-term follow-up in 1to 2 months recommended given history of malignancy and the aditus new from prior 2. Stable right upper lung 3 mm pulmonary nodule No evidence for lymphadenopathy. 3. Bilateral breast implants appear intact.
== END | disposition home or self-care (01) ==
LOC: RADCTMAIN 10:49
PROVIDERS: ATTEND Internal Medicine Hematology & Oncology
DX: R91.1 Solitary pulmonary nodule (principal); J98.4 Other disorders of lung; R91.8 Other nonspecific abnormal finding of lung field; C50.411 Malignant neoplasm of upper-outer quadrant of right female breast; K12.31 Oral mucositis (ulcerative) due to antineoplastic therapy; B37.32 Chronic candidiasis of vulva and vagina; R21 Rash and other nonspecific skin eruption; Z98.82 Breast implant status
CPT/HCPCS: 71250

== ENCOUNTER → 2023-07-12 | Outpatient (CLI) | payer BC ==
--- NOTE | 2023-07-12 23:50 | US ---
EXAMINATION TYPE: US abdomen complete DATE OF EXAM: 07/12/2023 COMPARISON: CT 02/26/2023, US - 11/18/2021 CLINICAL INDICATION: Female, 43 years old with history of R94.5 ABNORMAL LIVER FUNCTION TEST; Patient denies any signs or symptoms; Hx Cholecystectomy TECHNIQUE: Multiple sonographic images of the abdomen are obtained. 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 Moderate fatty infiltration of the liver. Hepatomegaly is present. 2. Echogenic foci within the cortex left kidney. These are not readily apparent on CT. Follow-up idania mmended
== END | disposition home or self-care (01) ==
LOC: RADUSWWP 08:22
PROVIDERS: ATTEND Internal Medicine Hematology & Oncology
DX: K76.0 Fatty (change of) liver, not elsewhere classified (principal); R16.0 Hepatomegaly, not elsewhere classified
CPT/HCPCS: 76700

== ENCOUNTER → 2023-12-23 | Outpatient (CLI) | payer BC ==
[2023-12-23 14:43] LABS: African American GFR (CKD) >90 (>60 ml/min/1.73 sqM); Blood Urea Nitrogen 10 mg/dL (7-17); Non-African American GFR(CKD) >90 (>60 ml/min/1.73 sqM)
--- NOTE | 2023-12-23 16:11 | CT ---
EXAMINATION TYPE: CT ChestAbdPelvis w con CT DLP: 1993 mGycm, Automated exposure control for dose reduction was used. DATE OF EXAM: 12/23/2023 3:33 PM COMPARISON: 05/20/2023 CLINICAL INDICATION: Female, 43 years old with history of C50.411 BR CANCER; PHH, BREAST CA Technique: CT ChestAbdPelvis w con; Multiple axial images were obtained. Two-dimensional coronal and sagittal reconstructions were obtained. Contrast used:100 mL of Isovue 300 with IV Contrast, Oral contrast used: with Oral Contrast Findings: CHEST: LUNGS/ PLEURA: No focal consolidation, pneumothorax or pleural effusion. AIRWAY: Patent and unremarkable. HEART: Size within normal limits. MEDIASTINUM: No gross evidence of adenopathy. VASCULATURE: No aortic aneurysm. MUSCULOSKELETAL: No acute osseous abnormalities. SOFT TISSUES/LYMPH NODES: Bilateral breast implants appear intact. No new or enlarging mass. Stable a ppearing bilateral axillary lymph nodes which are nonenlarged. LOWER NECK: No significant findings. ABDOMEN: ABDOMEN LIVER: Unremarkable GALLBLADDER AND BILE DUCTS: The gallbladder surgically absent. PANCREAS: Unremarkable. SPLEEN: Unremarkable. ADRENAL GLANDS: Unremarkable. KIDNEYS AND URETERS: No evidence of hydronephrosis or renal calculus. The ureters are unremarkable. PELVIS BLADDER: Unremarkable REPRODUCTIVE: Unremarkable. ABDOMEN & PELVIS STOMACH AND BOWEL: No evidence of bowel obstruction. The appendix is normal. PERITONEUM/RETROPERITONEUM: No evidence of pneumoperitoneum or free fluid. VASCULATURE: No evidence of aortic aneurysm. MUSCULOSKELETAL: No acute osseous abnormalities LYMPH NODES: No gross evidence for lymphadenopathy. SOFT TISSUE/ABDOMINAL WALL: Unremarkable IMPRESSION: No evidence for lymphadenopathy or evidence for recurrence.
== END | disposition home or self-care (01) ==
LOC: RADCTMAIN 13:29
PROVIDERS: ATTEND Internal Medicine Hematology & Oncology
DX: C50.411 Malignant neoplasm of upper-outer quadrant of right female breast (principal); B37.32 Chronic candidiasis of vulva and vagina; K12.31 Oral mucositis (ulcerative) due to antineoplastic therapy; R21 Rash and other nonspecific skin eruption
CPT/HCPCS: 82565; 84520; 71260; 74177; 36415; Q9967

== ENCOUNTER → 2024-08-10 | Outpatient (CLI) | payer BC ==
--- NOTE | 2024-08-10 15:52 | USB ---
Reason for Exam: Clinical finding. Indicated Problems: Lump or thickening of the right side. Risk Values: [place] 5 year model risk: 0.4%. NCI Lifetime model risk: 6.6%. Technique: Method: Targeted. Doppler: Color. Patient Position: Supine. Findings: The area of palpable concern of the right breast, the periareolar of the right breast, the axilla of the right breast and the retroareolar of the right breast were scanned. Targeted ultrasound. Right breast implant is identified. At 4:00 position there is a poorly defined hypoechoic 10 mm x 12 x 8 avascular area immediately adjacent to the implant. Patient states this has been present since 2021 and has been followed by surgeon under ultrasound in his/her office. It was attributed to fat necrosis. At 9:00 position there is a smaller avascular hypoechoic area adjacent to implant now identified. Scanning right axilla shows benign appearing elongated subcentimeter lymph node. Overall Assessment: Probably benign, BI-RAD 3 Management: Diagnostic Breast Ultrasound of the right breast in 6 months. Precautionary short-term diagnostic right breast ultrasound follow-up. Patient to return sooner if either lesion is felt to enlarge. Recommend clinical evaluation. Consider CT or PET/CT follow-up to further evaluate if there is strong clinical suspicion for malignant recurrence. A clinical breast exam by your physician is recommended on an annual basis and results should be correlated with mammographic findings. This exam should not preclude additional follow-up of suspicious palpable abnormalities. Results were given to the patient verbally at the time of exam. [facility], , 08/10/2024 3:49 PM. Electronically signed and approved by: Greyson Rahman M.D.
== END | disposition home or self-care (01) ==
LOC: RADUSWWP 15:02
PROVIDERS: ATTEND Surgery
DX: N63.10 Unspecified lump in the right breast, unspecified quadrant (principal); Z90.11 Acquired absence of right breast and nipple; Z85.3 Personal history of malignant neoplasm of breast; Z98.82 Breast implant status